=== PATIENT | female | born 1990 | race Caucasian/White ===

== ENCOUNTER 2019-06-30 14:04 | Emergency (ER) | payer BC ==
--- NOTE | 2019-06-30 14:49 | EDM.PDOC ---
ED HPI GENERAL MEDICAL PROBLEM - General Chief Complaint: Respiratory Problem Stated Complaint: NAUSEA/ THROWING UP/ COUGHING Time Seen by Provider: 06/30/19 14:49 Source of Information: Reports: Patient History Limitations: Reports: No Limitations - History of Present Illness INITIAL COMMENTS - FREE TEXT/NARRATIVE: HISTORY AND PHYSICAL: History of present illness: Patient is a 29-year-old female presents to the ED with complaint of cough and vomiting. Patient started with a cough yesterday and had an episode of nonbloody emesis yesterday and once this morning. She states she feels tired and has had chills. She reports taking tylenol and does feel better with this. She denies chest pain, shortness of breath, abdominal pain, diarrhea, sore throat, ear pain. She denies recent travel. Patient is an MA at [employer]. She denies significant past medical history. Review of systems: As per history of present illness and below otherwise all systems reviewed and negative. Past medical history: As per history of present illness and as reviewed below otherwise noncontributory. Surgical history: As per history of present illness and as reviewed below otherwise noncontributory. Social history: No reported history of drug or alcohol abuse. Family history: As per history of present illness and as reviewed below otherwise noncontributory. Physical exam: General: Patient sitting comfortably in no acute distress and nontoxic appearing HEENT: Atraumatic, normocephalic, pupils reactive, negative for conjunctival pallor or scleral icterus, mucous membranes moist, throat clear, neck supple, nontender, trachea midline. No meningeal signs. Lungs: Clear to auscultation, breath sounds equal bilaterally, chest nontender. Heart: S1S2, regular, negative for clicks, rubs, or overt murmur. Abdomen: Soft, nondistended, nontender. Negative for masses or hepatosplenomegaly. Negative for costovertebral tenderness. No rigidity, rebound , guarding. Pelvis: Stable nontender. Genitourinary: Deferred. Rectal: Deferred. Extremities: Atraumatic, negative for cords or calf pain. Neurovascular unremarkable. Neuro: Awake, alert, oriented. Cranial nerves II through XII unremarkable. Cerebellum unremarkable. Motor and sensory unremarkable throughout. Exam nonfocal. Notes: Diagnostics: Influenza Therapeutics: Zofran Prescriptions: Impression: Cough, nausea and vomiting Plan: Drink plenty of fluids and alternate tylenol and motrin as discussed You make take zofran as needed for nausea/vomiting Follow up with primary care provider Return to ED as needed as discussed Definitive disposition and diagnosis as appropriate pending reevaluation and review of above. - Related Data Allergies Allergy/AdvReac Type Severity Reaction Status Date / Time No Known Allergies Allergy Verified 06/30/19 14:43 Home Meds: Home Meds Ondansetron [Zofran ODT] 4 mg PO Q6H PRN #10 tab.dis 06/30/19 [Rx] ED ROS GENERAL - Review of Systems Review Of Systems: Comprehensive ROS is negative, except as noted in HPI. ED EXAM, GENERAL - Physical Exam Exam: See Below (see dictation) Course - Vital Signs Last Recorded V/S: Last Vital Signs Temp 99.5 F 06/30/19 14:43 Pulse 104 H 06/30/19 14:43 Resp 16 06/30/19 14:43 BP 132/84 06/30/19 14:43 Pulse Ox 97 06/30/19 14:43 - Orders/Labs/Meds Meds: Medications Discontinued Medications Generic Name Dose Route Start Last Admin Trade Name Freq PRN Reason Stop Dose Admin Ondansetron HCl 4 mg 06/30/19 14:59 06/30/19 15:04 Zofran Odt PO 06/30/19 15:00 4 mg ONETIME ONE Administration Departure - Departure Time of Disposition: 15:34 Disposition: Home, Self-Care 01 Condition: Good Clinical Impression: Cough, Nausea & vomiting - Discharge Information Prescriptions: Ondansetron [Zofran ODT] 4 mg PO Q6H PRN #10 tab.dis PRN Reason: Nausea/Vomiting Referrals: PCP,None [Primary Care Provider] - Forms: ED Department Discharge Additional Instructions: The following information is given to patients seen in the emergency department who are being discharged to home. This information is to outline your options for follow-up care. We provide all patients seen in our emergency department with a follow-up referral. The need for follow-up, as well as the timing and circumstances, are variable depending upon the specifics of your emergency department visit. If you don't have a primary care physician on staff, we will provide you with a referral. We always advise you to contact your personal physician following an emergency department visit to inform them of the circumstance of the visit and for follow-up with them and/or the need for any referrals to a consulting specialist. The emergency department will also refer you to a specialist when appropriate. This referral assures that you have the opportunity for follow-up care with a specialist. All of these measure are taken in an effort to provide you with optimal care, which includes your follow-up. Under all circumstances we always encourage you to contact your private physician who remains a resource for coordinating your care. When calling for follow-up care, please make the office aware that this follow-up is from your recent emergency room visit. If for any reason you are refused follow-up, please contact the [facility] Emergency Department at and asked to speak to the emergency department charge nurse. [facility] [address] [place] [address] [place] [address] Drink plenty of fluids and alternate tylenol and motrin as discussed You make take zofran as needed for nausea/vomiting Follow up with primary care provider Return to ED as needed as discussed Sepsis Event Note - Evaluation Sepsis Screening Result: No Definite Risk - Focused Exam Vital Signs: Vital Signs Temp Pulse Resp BP Pulse Ox 06/30/19 14:43 99.5 F 104 H 16 132/84 97 Date Exam was Performed: 06/30/19 Time Exam was Performed: 15:33
[2019-06-30] MEDS ORDERED: Ondansetron 4 MG Tab.DIS PO ONE (14:59)
== END 2019-06-30 15:48 | disposition home or self-care (01) ==
LOC: MW.ED 14:04
DX: R11.2 Nausea with vomiting, unspecified (principal); R05 Cough
CPT/HCPCS: 87804; 99284; A9270; 99282

== ENCOUNTER 2020-06-02 23:47 | Emergency (ER) | payer BC ==
--- NOTE | 2020-06-02 23:54 | EDM.PDOC ---
ED HPI GENERAL MEDICAL PROBLEM - General Stated Complaint: SHORTNESS OF BREATH, 27 WKS Time Seen by Provider: 06/02/20 23:48 Source of Information: Reports: Patient History Limitations: Reports: No Limitations - History of Present Illness INITIAL COMMENTS - FREE TEXT/NARRATIVE: 30-year-old female GA 27 weeks with history of asthma presents feeling short of breath since 1999 this evening. Patient denies fever, chills, headache, chest pain, cough, abdominal pain, vaginal bleeding, contractions, leakage of fluid, focal numbness or weakness.she has a history of asthma but has not had an exace rbation for a long time. She used a Primatene Mist inhaler prior to arrival with no relief. ROS: A 10-point review of systems, other than pertinent positives and negatives as stated per HPI, is otherwise negative Past medical history: No additional pertinent history Past Surgical history: No additional pertinent history Social history: No additional pertinent history Family history: No additional pertinent history PHYSICAL EXAM General: AOx4, GCS = 15, No distress HEENT: dry mucous membrane Neck: supple, no meningismus, no Kernig or Brudzinski Cardiac: S1S2 RRR Respiratory: Diminished breath sounds bilaterally, no wheezing. Abdomen: Soft, nontender, no rebound or guarding, nondistended, no pulsatile mass. Back: nontender Musculoskeletal: NVI distally, no deformity Neuro: No focal deficits, CN 2 - 12 WNL. - Related Data Allergies Allergy/AdvReac Type Severity Reaction Status Date / Time Penicillins Allergy Hives Verified 06/02/20 23:55 Home Meds: Home Meds Vits #93/Iron Fum/FA [ Formula Tablet] 1 tab PO DAILY 06/02/20 [History] Albuterol Sulfate [Proair Hfa] 8.5 gm IH Q6H PRN #1 hfa.aer.ad 06/03/20 [Rx] Past Medical History - Past Surgical History HEENT Surgical History: Reports: Adenoidectomy, Tonsillectomy Social & Family History - Family History Family Medical History: No Pertinent Family History ED ROS GENERAL - Review of Systems Review Of Systems: See Below (see dictation) ED EXAM, GENERAL - Physical Exam Exam: See Below (see dictation) #1 Interpretation EKG Interpretation Comments: Heart rate = 95 bpm, normal sinus rhythm, normal QRS interval, no STEMI. EKG and rhythm strip interpreted by me at 1156 Course - Vital Signs Last Recorded V/S: Last Vital Signs Temp 97.9 F 06/02/20 23:58 Pulse 95 06/02/20 23:58 Resp 18 06/02/20 23:58 BP 126/77 06/02/20 23:58 Pulse Ox 99 06/02/20 23:58 - Orders/Labs/Meds Orders: Active Orders 24 hr Category Date Time Status EKG Documentation Completion [RC] STAT Care 06/03/20 00:02 Active RT Aerosol Therapy [RC] ASDIRECTED Care 06/03/20 00:08 Active RT Aerosol Therapy [RC] ASDIRECTED Care 06/03/20 00:08 Active Meds: Medications Discontinued Medications Generic Name Dose Route Start Last Admin Trade Name Freq PRN Reason Stop Dose Admin Albuterol/Ipratropium 3 ml 06/03/20 00:07 06/03/20 00:39 Duoneb 3.0-0.5 Mg/3 Ml NEB 06/03/20 00:08 3 ml ONETIME ONE Administration Budesonide 0.5 mg 06/03/20 00:08 06/03/20 00:39 Pulmicort NEB 06/03/20 00:09 0.5 mg ONETIME ONE Administration - Re-Assessments/Exams Free Text/Narrative Re-Assessment/Exam: 06/03/20 01:12 After DuoNeb treatment with budesonide, she feels much improved, she is currently stable for discharge. I performed a repeat exam and did not appreciate new abnormal findings. Patient exhibits normal vital signs and has a normal gait on road test. FHT was performed and in approrpiate range. I advised the patient to return to the ER for reevaluation if symptoms worsened, including fever, worsening pain, or any other worrisome symptoms. I instructed the patient to follow up with their PCP within 2-3 days. MEDICAL DECISION MAKING: I reviewed the patients past medical records, lab and radiographic findings. I discussed the case with the patient. My differential diagnosis included: Asthma exacerbation. Departure - Departure Time of Disposition: 01:13 Disposition: Home, Self-Care 01 Condition: Good Clinical Impression: Exacerbation of asthma - Discharge Information *PRESCRIPTION DRUG MONITORING PROGRAM REVIEWED*: Not Applicable *COPY OF PRESCRIPTION DRUG MONITORING REPORT IN PATIENT LEON: Not Applicable Prescriptions: Albuterol Sulfate [Proair Hfa] 8.5 gm IH Q6H PRN #1 hfa.aer.ad PRN Reason: Shortness Of Breath Instructions: Asthma, Adult Referrals: PCP,None [Primary Care Provider] - Sepsis Event Note (ED) - Focused Exam Vital Signs: Vital Signs Temp Pulse Resp BP Pulse Ox 06/02/20 23:58 97.9 F 95 18 126/77 99 - My Orders Last 24 Hours: My Active Orders 06/03/20 00:02 EKG Documentation Completion [RC] STAT 06/03/20 00:08 RT Aerosol Therapy [RC] ASDIRECTED RT Aerosol Therapy [RC] ASDIRECTED - Assessment/Plan Last 24 Hours: My Active Orders 06/03/20 00:02 EKG Documentation Completion [RC] STAT 06/03/20 00:08 RT Aerosol Therapy [RC] ASDIRECTED RT Aerosol Therapy [RC] ASDIRECTED
[2020-06-03] MEDS ORDERED: Albuterol/Ipratropium 3.0-0.5 MG/3 ML Neb Soln NEB ONE (00:07)
[2020-06-03] MEDS ORDERED: Budesonide 0.5 MG/2 ML Neb Susp NEB ONE (00:08)
== END 2020-06-03 01:34 | disposition home or self-care (01) ==
LOC: MW.ED 23:47
DX: J45.901 Unspecified asthma with (acute) exacerbation (principal); Z88.0 Allergy status to penicillin
CPT/HCPCS: 93005; 93010; 99283; 99284-25; J7620-GY

== ENCOUNTER 2020-08-16 15:21 | Inpatient (IN) | payer BC ==
[2020-08-16] MEDS ORDERED: Ondansetron 4 MG/2 ML SDV IVPUSH PRN (15:37)
[2020-08-16] MEDS ORDERED: Carboprost Tromethamine 250 MCG/1 ML Amp IM PRN (15:37)
[2020-08-16] MEDS ORDERED: Nalbuphine 10 MG/1 ML Vial IVPUSH PRN (15:37)
[2020-08-16] MEDS ORDERED: Sodium Chloride 0.9% 10 ML Syringe FLUSH PRN (15:37)
[2020-08-16] MEDS ORDERED: Misoprostol 200 MCG Tab PO PRN (15:37)
[2020-08-16] MEDS ORDERED: Tranexamic Acid 1,000 MG in Sodium Chloride 0.9% 100 ML IV PRN (15:37)
[2020-08-16] MEDS ORDERED: Terbutaline 1 MG/ML SDV SUBCUT PRN (15:37)
[2020-08-16] MEDS ORDERED: Water For Irrigation,Sterile 1,000 ML Container IRR PRN (15:37)
[2020-08-16] MEDS ORDERED: Lidocaine 1% 50 ML MDV INJECT PRN (15:37)
[2020-08-16] MEDS ORDERED: Methylergonovine 0.2 MG/1 ML Amp IM PRN (15:37)
[2020-08-16] MEDS ORDERED: Misoprostol 25 MCG (1/4 of 100 MCG) Tab VAG PRN (15:37)
[2020-08-16] MEDS ORDERED: Oxytocin/0.9 % Sodium Chloride 30 UNIT/500 ML BAG IV SCH ×2 (15:45)
[2020-08-16] MEDS ORDERED: hydrOXYzine Pamoate 25 MG Cap PO PRN (15:45)
[2020-08-16] MEDS ORDERED: Misoprostol 25 MCG (1/4 of 100 MCG) Tab PO ONE (15:56)
[2020-08-16] MEDS: Misoprostol 25 MCG (1/4 of 100 MCG) Tab VAG PRN ×2 (16:19→21:00)
--- NOTE | 2020-08-16 17:08 | PCM.LDHP ---
L&D History of Present Illness - General Date of Service: 08/16/20 Admit Problem/Dx: Patient Status Order with Admit Dx/Problem 08/16/20 15:38 Patient Status [ADT] Routine Admission Diagnosis/Problem Admission Diagnosis/Problem 08/16/20 17:03 Yuliya is a 30 yo at 38+3 weeks gestation (RIVAS(LMP) 08/27/2020) that presents today for IOL re: A2GDM treated with metformin 500 mg BID. O pos, Ab screen neg, RI, GBS neg. Ax: Penicillins. TWG 21 lbs, appropriate for pre- BMI. Otherwise unremarkable course. Denies LOF, pain; reports adequate FM. Denies any other complaints or concerns at this time. RBAs/SEs of IOL with Rodgers < 8 needing cervical ripening discussed in clinic, consents signed 08/09/2020; rediscussed and reinforced today. Desires to continue with IOL today. 08/16/20 17:09 Source of Information: Patient History Limitations: Reports: No Limitations - History of Present Illness Improves with: Reports: None Worsens with: Reports: None Associated Symptoms: Reports: N - Related Data Allergies/Adverse Reactions: Allergies Allergy/AdvReac Type Severity Reaction Status Date / Time Penicillins Allergy Hives Verified 07/26/20 16:53 Home Medications: Home Meds Vits #93/Iron Fum/FA [ Formula Tablet] 1 tab PO DAILY 06/02/20 [History] metFORMIN [Glucophage XR] 500 mg PO BIDMEALS 08/16/20 [History] Past Medical History HEENT History: Reports: None Cardiovascular History: Reports: None Respiratory History: Reports: None Gastrointestinal History: Reports: None Genitourinary History: Reports: None CAT SITTER History: Reports: : 1 Para: 0 Musculoskeletal History: Reports: None Neurological History: Reports: None Psychiatric History: Reports: None Endocrine/Metabolic History: Reports: Diabetes, Gestational, Obesity/BMI 30+ Hematologic History: Reports: None Immunologic History: Reports: None Oncologic (Cancer) History: Reports: None Dermatologic History: Reports: None - Past Surgical History HEENT Surgical History: Reports: Adenoidectomy, Tonsillectomy Social & Family History - Family History Family Medical History: No Pertinent Family History - Tobacco Use Tobacco Use Status *Q: Never Tobacco User - Caffeine Use Caffeine Use: Reports: None - Alcohol Use Alcohol Use History: No - Recreational Drug Use Recreational Drug Use: No H&P Review of Systems - Review of Systems: Review Of Systems: Comprehensive ROS is negative, except as noted in HPI. General: Reports: No Symptoms HEENT: Reports: No Symptoms Pulmonary: Reports: No Symptoms Cardiovascular: Reports: No Symptoms Gastrointestinal: Reports: No Symptoms Genitourinary: Reports: No Symptoms Musculoskeletal: Reports: No Symptoms Skin: Reports: No Symptoms Psychiatric: Reports: No Symptoms Neurological: Reports: No Symptoms Hematologic/Lymphatic: Reports: No Symptoms Immunologic: Reports: No Symptoms L&D Exam - Exam Exam: See Below - Vital Signs Vital Signs: VSS, afebrile. See flowsheet. Weight: 180 lb - OB Specific Fundal Height In cm: 38 Contraction Duration (sec): 0 Contraction Frequency (min): 0 Movement: Active Heart Tones: Present Heart Tones per Min: 115 Heart Rate (FHR) Variability: Moderate (6-25 bmp) Presentation: Vertex (via Jesús's.) - Rodgers Score Rodgers Score Cervix Position: Posterior Rodgers Score Consistency: Medium Rodgers Score Effacement: 0-30% Rodgers Score Dilation: Closed Rodgers Score Infant's Station: -2 Rodgers Score Total: 2 - Exam General: Alert, Oriented, Cooperative HEENT: Conjunctiva Clear, Hearing Intact, Mucosa Moist & [place], Normal Nasal Sept um, Posterior Pharynx Clear, TMs Clear, PERRLA Neck: Supple, Trachea Midline Lungs: Clear to Auscultation, Normal Respiratory Effort Cardiovascular: Regular Rate, Regular Rhythm GI/Abdominal Exam: Normal Bowel Sounds, Soft, Non-Tender, No Organomegaly, No Distention Rectal Exam: Deferred Genitourinary: Normal external exam, Normal bimanual exam, Enlarged uterus (Gravid uterus) Back Exam: Normal Inspection, Full Range of Motion Extremities: Normal Inspection, Normal Range of Motion, Non-Tender, No Pedal Edema, Normal Capillary Refill Skin: Warm, Dry, Intact Neurological: Cranial Nerves Intact, Reflexes Equal Bilateral Psychiatric: Alert, Normal Affect, Normal Mood - Patient Data Lab Results Last 24 hrs: Laboratory Results - last 24 hr 08/16/20 Range/Units 16:20 WBC 11.45 H (4.0-11.0) K/uL RBC 3.75 L (4.30-5.90) M/uL Hgb 12.2 (12.0-16.0) g/dL Hct 36.9 (36.0-46.0) % MCV 98.4 H (80.0-98.0) fL MCH 32.5 H (27.0-32.0) pg MCHC 33.1 (31.0-37.0) g/dL RDW Std Deviation 52.9 (28.0-62.0) fl RDW Coeff of Jacqui 15 (11.0-15.0) % Plt Count 215 (150-400) K/uL MPV 13.70 H (7.40-12.00) fL Nucleated RBC % 0.0 /100WBC Nucleated RBCs # 0 K/uL Result Diagrams: 08/16/20 16:20 - Problem List (1) Encounter for induction of labor SNOMED Code(s): 060160152 ICD Code: Z34.90 - ENCNTR FOR SUPRVSN OF NORMAL , UNSP, UNSP TRIMESTER Status: Acute Priority: High Current Visit: Yes (2) GDM, class A2 SNOMED Code(s): 59227357 ICD Code: O24.419 - GESTATIONAL DIABETES MELLITUS IN , UNSP CONTROL Status: Acute Priority: High Current Visit: Yes (3) 38 weeks gestation of SNOMED Code(s): 48895134 ICD Code: Z3A.38 - 38 WEEKS GESTATION OF Status: Acute Priority: High Current Visit: Yes Problem List Initiated/Reviewed/Updated: No Orders Last 24hrs: Active Orders 24 hr Category Date Time Status Patient Status [ADT] Routine ADT 08/16/20 15:38 Active Bedrest Bathroom Privileges [RC] ASDIRECTED Care 08/16/20 15:38 Active Communication Order [RC] ASDIRECTED Care 08/16/20 15:38 Active Communication Order [RC] ASDIRECTED Care 08/16/20 15:38 Active Communication Order [RC] ASDIRECTED Care 08/16/20 15:38 Active Heart Tones [RC] CONTINUOUS Care 08/16/20 15:38 Active Non Stress Test [RC] PER UNIT ROUTINE Care 08/16/20 15:38 Active May Shower [RC] ASDIRECTED Care 08/16/20 15:38 Active Notify Provider [RC] PRN Care 08/16/20 15:38 Active Notify Provider [RC] PRN Care 08/16/20 15:38 Active Notify Provider [RC] STAT Care 08/16/20 15:38 Active Oxygen Therapy [RC] ASDIRECTED Care 08/16/20 15:38 Active Up ad Domitila [RC] ASDIRECTED Care 08/16/20 15:38 Active Vaginal Exam [RC] PRN Care 08/16/20 15:38 Active Vaginal Exam [RC] PRN Care 08/16/20 15:38 Active Vital Signs [RC] PER UNIT ROUTINE Care 08/16/20 15:38 Active RPR (SYPHILIS SERO) W/ RFLX [REF] Routine Lab 08/16/20 16:53 Received TYPE AND SCREEN [BBK] Routine Lab 08/16/20 16:53 Received Carboprost Tromethamine [Hemabate DS] Med 08/16/20 15:37 Active 250 mcg IM ASDIRECTED PRN Lactated Ringers [Ringers, Lactated] 1,000 ml Med 08/16/20 15:45 Active IV ASDIRECTED Lidocaine 1% [Xylocaine 1%] Med 08/16/20 15:37 Active 50 ml INJECT ONETIME PRN Methylergonovine [Methergine] Med 08/16/20 15:37 Active 0.2 mg IM ASDIRECTED PRN Nalbuphine [Nubain] Med 08/16/20 15:37 Active 10 mg IVPUSH Q1H PRN Ondansetron [Zofran] Med 08/16/20 15:37 Active 4 mg IVPUSH Q4H PRN Oxytocin/0.9 % Sodium Chloride [Oxytocin 30 Unit/500 ML Med 08/16/20 15:45 Active -NS] 30 unit in 500 ml IV TITRATE Oxytocin/0.9 % Sodium Chloride [Oxytocin 30 Unit/500 ML Med 08/16/20 15:45 Active -NS] 30 unit in 500 ml IV TITRATE Sodium Chloride 0.9% [Saline Flush] Med 08/16/20 15:37 Active 10 ml FLUSH ASDIRECTED PRN Terbutaline [Brethine] Med 08/16/20 15:37 Active 0.25 mg SUBCUT ASDIRECTED PRN Tranexamic Acid [Cyklokapron] 1,000 mg Med 08/16/20 15:37 Active Sodium Chloride 0.9% [Normal Saline] 100 ml IV ONETIME Water For Irrigation,Sterile [Sterile Water for Med 08/16/20 15:37 Active Irrigation] 1,000 ml IRR ASDIRECTED PRN hydrOXYzine pamoate [Vistaril] Med 08/16/20 15:45 Active 50 mg PO BEDTIME PRN miSOPROStoL [Cytotec] Med 08/16/20 15:37 Active 200 mcg PO ONETIME PRN miSOPROStoL [Cytotec] Med 08/16/20 20:19 Active 25 mcg PO Q4H PRN miSOPROStoL [Cytotec] Med 08/16/20 15:37 Active 25 mcg VAG ONETIME PRN Scalp Electrode [WOMSER] Per Unit Routine Oth 08/16/20 15:38 Ordered Medication Administration Instruction [OM.PC] Q3H Oth 08/16/20 15:45 Ordered Peripheral IV Insertion Adult [OM.PC] Routine Oth 08/16/20 15:38 Ordered Resuscitation Status Routine Resus Stat 08/16/20 15:37 Ordered Medication Orders Carboprost Tromethamine (Carboprost Tromethamine 250 Mcg/1 Ml Amp) 250 mcg IM ASDIRECTED PRN PRN Reason: Post Hemorrhage Hydroxyzine Pamoate (Hydroxyzine Pamoate 25 Mg Cap) 50 mg PO BEDTIME PRN PRN Reason: Sleep Oxytocin/Sodium Chloride (Oxytocin 30 Unit/500 Ml-Ns) 30 unit in 500 mls @ 999 mls/hr IV TITRATE ROMAN Tranexamic Acid 1,000 mg/ (Sodium Chloride) 110 mls @ 660 mls/hr IV ONETIME PRN PRN Reason: Bleeding Oxytocin/Sodium Chloride (Oxytocin 30 Unit/500 Ml-Ns) 30 unit in 500 mls @ 2 mls/hr IV TITRATE ROMAN; Protocol Lactated Ringer's (Ringers, Lactated) 1,000 mls @ 150 mls/hr IV ASDIRECTED ROMAN Lidocaine HCl (Lidocaine 1% 50 Ml Mdv) 50 ml INJECT ONETIME PRN PRN Reason: Laceration repair Methylergonovine Maleate (Methylergonovine 0.2 Mg/1 Ml Amp) 0.2 mg IM ASDIRECTED PRN PRN Reason: Post Hemorrhage Misoprostol (Misoprostol 200 Mcg Tab) 200 mcg PO ONETIME PRN PRN Reason: Post Hemorrhage Misoprostol (Misoprostol 25 Mcg (1/4 Of 100 Mcg) Tab) 25 mcg VAG ONETIME PRN PRN Reason: Cervical Ripening Last Admin: 08/16/20 16:19 Dose: 25 mcg Documented by: DEVONTE Misoprostol (Misoprostol 25 Mcg (1/4 Of 100 Mcg) Tab) 25 mcg PO Q4H PRN PRN Reason: Cervical Ripening Nalbuphine HCl (Nalbuphine 10 Mg/1 Ml Vial) 10 mg IVPUSH Q1H PRN PRN Reason: Pain (severe 7-10) Ondansetron HCl (Ondansetron 4 Mg/2 Ml Sdv) 4 mg IVPUSH Q4H PRN PRN Reason: Nausea/Vomiting Sodium Chloride (Sodium Chloride 0.9% 10 Ml Syringe) 10 ml FLUSH ASDIRECTED PRN PRN Reason: Keep Vein Open Sterile Water (Water For Irrigation,Sterile 1,000 Ml Container) 1,000 ml IRR ASDIRECTED PRN PRN Reason: delivery Terbutaline Sulfate (Terbutaline 1 Mg/Ml Sdv) 0.25 mg SUBCUT ASDIRECTED PRN PRN Reason: Tacysystole Assessment/Plan Comment:: Admit to inpatient observation for IOL re: A2GDM. RODGERS 2: Cytotec Dose #1 administered 4:20 pm, plan to reassess cervical change at 8:30 pm or sooner if indicated. Carb consistent diet. FSBSs q 4 hours intrapartum. VS and EFM/TOCO per orders. May receive epidural >/=[address] new orders[address] Dr. Broussard notified and agreeable with POC.
[2020-08-16] MEDS ORDERED: Misoprostol 25 MCG (1/4 of 100 MCG) Tab PO PRN (20:19)
[2020-08-16] MEDS ORDERED: Misoprostol 50 MCG (1/2 of 100 MCG) Tab VAG PRN (20:25)
[2020-08-17] MEDS: Lactated Ringers 1,000 ML IV SCH ×3 (00:30→03:06)
[2020-08-17] MEDS ORDERED: Ropivacaine HCl/PF 100 ML ONE (01:56)
[2020-08-17] MEDS ORDERED: fentaNYL 100 MCG/2 ML SDV ONE (01:56)
--- NOTE | 2020-08-17 02:20 | PCM.PREANE ---
Preanesthetic Assessment - Anesthesia/Transfusion/Family Hx Anesthesia History: No Prior Anesthesia Family History of Anesthesia Reaction: No Transfusion History: No Prior Transfusion(s) - Physical Assessment NPO Status Date: 08/16/20 NPO Status Time: 20:00 Height: 1.57 m Weight: 81.647 kg ASA Class: 2 - Lab Values: Laboratory Last Values WBC 11.45 K/uL (4.0-11.0) H 08/16/20 16:20 RBC 3.75 M/uL (4.30-5.90) L 08/16/20 16:20 Hgb 12.2 g/dL (12.0-16.0) 08/16/20 16:20 Hct 36.9 % (36.0-46.0) 08/16/20 16:20 MCV 98.4 fL (80.0-98.0) H 08/16/20 16:20 MCH 32.5 pg (27.0-32.0) H 08/16/20 16:20 MCHC 33.1 g/dL (31.0-37.0) 08/16/20 16:20 RDW Std Deviation 52.9 fl (28.0-62.0) 08/16/20 16:20 RDW Coeff of Jacqui 15 % (11.0-15.0) 08/16/20 16:20 Plt Count 215 K/uL (150-400) 08/16/20 16:20 MPV 13.70 fL (7.40-12.00) H 08/16/20 16:20 Nucleated RBC % 0.0 /100WBC 08/16/20 16:20 Nucleated RBCs # 0 K/uL 08/16/20 16:20 Membrane Rupture POSITIVE 08/17/20 00:40 Blood Type O POSITIVE 08/16/20 16:53 Antibody Screen NEGATIVE 08/16/20 16:53 - Allergies Allergies/Adverse Reactions: Allergies Allergy/AdvReac Type Severity Reaction Status Date / Time Penicillins Allergy Hives Verified 07/26/20 16:53 - Acknowledgements Anesthesia Type Planned: Epidural Pt an Appropriate Candidate for the Planned Anesthesia: Yes Alternatives and Risks of Anesthesia Discussed w Pt/Guardian: Yes Pt/Guardian Understands and Agrees with Anesthesia Plan: Yes PreAnesthesia Questionnaire HEENT History: Reports: None Cardiovascular History: Reports: None Respiratory History: Reports: None Gastrointestinal History: Reports: None Genitourinary History: Reports: None ACCORDION TUNER History: Reports: Musculoskeletal History: Reports: None Neurological History: Reports: None Psychiatric History: Reports: None Endocrine/Metabolic History: Reports: Diabetes, Gestational, Obesity/BMI 30+ Hematologic History: Reports: None Immunologic History: Reports: None Oncologic (Cancer) History: Reports: None Dermatologic History: Reports: None - Infectious Disease History Infectious Disease History: Reports: Chicken Pox, SARS - Past Surgical History HEENT Surgical History: Reports: Adenoidectomy, Tonsillectomy - SUBSTANCE USE Tobacco Use Status *Q: Never Tobacco User Second Hand Smoke Exposure: No Recreational Drug Use History: No - HOME MEDS Home Medications: Home Meds Vits #93/Iron Fum/FA [ Formula Tablet] 1 tab PO DAILY 06/02/20 [History] metFORMIN [Glucophage XR] 500 mg PO BIDMEALS 08/16/20 [History] - CURRENT (IN HOUSE) MEDS Current Meds: Current Medications Carboprost Tromethamine (Carboprost Tromethamine 250 Mcg/1 Ml Amp) 250 mcg IM ASDIRECTED PRN PRN Reason: Post Hemorrhage Hydroxyzine Pamoate (Hydroxyzine Pamoate 25 Mg Cap) 50 mg PO BEDTIME PRN PRN Reason: Sleep Last Admin: 08/16/20 23:51 Dose: 50 mg Documented by: Oxytocin/Sodium Chloride (Oxytocin 30 Unit/500 Ml-Ns) 30 unit in 500 mls @ 999 mls/hr IV TITRATE ROMAN Tranexamic Acid 1,000 mg/ (Sodium Chloride) 110 mls @ 660 mls/hr IV ONETIME PRN PRN Reason: Bleeding Oxytocin/Sodium Chloride (Oxytocin 30 Unit/500 Ml-Ns) 30 unit in 500 mls @ 2 mls/hr IV TITRATE ROMAN; Protocol Lactated Ringer's (Ringers, Lactated) 1,000 mls @ 150 mls/hr IV ASDIRECTED ROMAN Last Admin: 08/17/20 00:30 Dose: 150 mls/hr Documented by: Lidocaine HCl (Lidocaine 1% 50 Ml Mdv) 50 ml INJECT ONETIME PRN PRN Reason: Laceration repair Methylergonovine Maleate (Methylergonovine 0.2 Mg/1 Ml Amp) 0.2 mg IM ASDIRECTED PRN PRN Reason: Post Hemorrhage Misoprostol (Misoprostol 200 Mcg Tab) 200 mcg PO ONETIME PRN PRN Reason: Post Hemorrhage Misoprostol (Misoprostol 25 Mcg (1/4 Of 100 Mcg) Tab) 25 mcg VAG ONETIME PRN PRN Reason: Cervical Ripening Last Admin: 08/16/20 21:00 Dose: 25 mcg Documented by: Misoprostol (Misoprostol 25 Mcg (1/4 Of 100 Mcg) Tab) 25 mcg PO Q4H PRN PRN Reason: Cervical Ripening Last Admin: 08/16/20 21:01 Dose: 25 mcg Documented by: Misoprostol (Misoprostol 50 Mcg (1/2 Of 100 Mcg) Tab) 25 mcg VAG Q4H PRN PRN Reason: cervical ripening Nalbuphine HCl (Nalbuphine 10 Mg/1 Ml Vial) 10 mg IVPUSH Q1H PRN PRN Reason: Pain (severe 7-10) Ondansetron HCl (Ondansetron 4 Mg/2 Ml Sdv) 4 mg IVPUSH Q4H PRN PRN Reason: Nausea/Vomiting Sodium Chloride (Sodium Chloride 0.9% 10 Ml Syringe) 10 ml FLUSH ASDIRECTED PRN PRN Reason: Keep Vein Open Sterile Water (Water For Irrigation,Sterile 1,000 Ml Container) 1,000 ml IRR ASDIRECTED PRN PRN Reason: delivery Terbutaline Sulfate (Terbutaline 1 Mg/Ml Sdv) 0.25 mg SUBCUT ASDIRECTED PRN PRN Reason: Tacysystole Discontinued Medications Fentanyl (Fentanyl 100 Mcg/2 Ml Sdv) Confirm Administered Dose 100 mcg .ROUTE .STK-MED ONE Stop: 08/17/20 01:57 Ropivacaine (Naropin 0.2%) Confirm Administered Dose 100 mls @ as directed .ROUTE .STK-MED ONE Stop: 08/17/20 01:57 Misoprostol (Misoprostol 25 Mcg (1/4 Of 100 Mcg) Tab) 25 mcg VAG Q4H PRN PRN Reason: Cervical Ripening Misoprostol (Misoprostol 25 Mcg (1/4 Of 100 Mcg) Tab) 25 mcg PO ONETIME ONE Stop: 08/16/20 15:57 Last Admin: 08/16/20 16:18 Dose: 25 mcg Documented by:
--- NOTE | 2020-08-17 02:23 | PCM.PRNOTE ---
- Free Text/Narrative Note: Anes Note Patient requests epidural for L&D. Sitting position. Level L3-L4 midline approach. Sterile technique. Chloraprep scrub to lumbar areas. Sterile fenestrated drape applied. Epidural space easily achieved single attempt with ease using RENO technique. RENO at 3 cm. Cath threaded 5 cm with ease. Cath secured a t skin using sterile clear adhesive dressing. 0208 Test 3 cc 1.5% lido with epi negative. 0211 Load 10 cc 0.2% ropivicaine with 1 mcg cc fentanyl in slow divided doses. 0215 Pump started with 90 cc same solution. Rate is 8 cc hr with 6 cc q 20 min prn bolus. Enzo well. Time with patient [id number] Kunal Valdes ANALYTICS DIRECTOR
[2020-08-17] MEDS ORDERED: Acetaminophen 500 MG Tab PO PRN (08:25)
[2020-08-17] MEDS ORDERED: Benzocaine/Menthol 20%-0.5% Spray 78 GM Cannister TOP PRN (08:25)
[2020-08-17] MEDS ORDERED: Bisacodyl 10 MG Supp RECTAL PRN (08:25)
[2020-08-17] MEDS ORDERED: Ibuprofen 400 MG Tab PO PRN (08:25)
[2020-08-17] MEDS ORDERED: oxyCODONE 5 MG Tab PO PRN (08:25)
[2020-08-17] MEDS ORDERED: Lanolin 100% Cream 7 GM Tube TOP PRN (08:25)
[2020-08-17] MEDS ORDERED: Witch Hazel Medicated Pads 40/Jar TOP PRN (08:25)
[2020-08-17] MEDS: Ibuprofen 800 MG Tab PO PRN ×3 (10:55→23:32)
[2020-08-17] MEDS: Docusate Sodium 100 MG Cap PO PRN ×2 (10:55→23:31)
[2020-08-17] MEDS: Acetaminophen 500 MG Tab PO PRN (20:43)
--- NOTE | 2020-08-18 05:00 | PCM.DCSUM1 ---
Discharge Summary - Hospital Course Free Text/Narrative:: Yuliya is a 30 yo current S/P OVD of viable, term NBM at 38+3 weeks gestation (RIVAS(LMP) 08/27/2020) performed by Dr. Broussard following IOL re: A2GDM treated with metformin 500 mg BID. O pos, Ab screen neg, RI, GBS neg. Ambulating, hydrating, eating, and voiding independently and without issue. Bottle feeding infant without problems. Moderate to severe uterine cramping and vaginal discomfort alleviated with ibuprofen and acetaminophen. Small to moderate vaginal bleeding, no clots. Patient has no questions or concerns at this time. Desires to be discharge home today. Hgb 8.6, asymptomatic. Diagnosis: Stroke: No - Discharge Data Discharge Date: 08/18/20 Discharge Disposition: Home, Self-Care 01 Condition: Good - Referral to Home Health Primary Care Physician: Lopez Broussard MD - Discharge Diagnosis/Problem(s) (1) Encounter for induction of labor SNOMED Code(s): 771860646 ICD Code: Z34.90 - ENCNTR FOR SUPRVSN OF NORMAL , UNSP, UNSP TRIMESTER Status: Acute Priority: High (2) GDM, class A2 SNOMED Code(s): 83306679 ICD Code: O24.419 - GESTATIONAL DIABETES MELLITUS IN , UNSP CONTROL Status: Acute Priority: High (3) 38 weeks gestation of SNOMED Code(s): 55907780 ICD Code: Z3A.38 - 38 WEEKS GESTATION OF Status: Acute Priority: High - Patient Instructions Diet: Regular Diet as Tolerated, Drink 8-10+ Glasses/Day Activity: As Tolerated, No Strenuous Activities, Rest and Relax Today Driving: May Drive Today Showering/Bathing: May Shower Showering/Bathing, Other: May use sitz baths for perineal comfort Notify Provider of: Fever, Increased Pain, Swelling and Redness, Drainage, Nausea and/or Vomiting - Discharge Plan *PRESCRIPTION DRUG MONITORING PROGRAM REVIEWED*: No *COPY OF PRESCRIPTION DRUG MONITORING REPORT IN PATIENT LEON: No Prescriptions/Med Rec: Ibuprofen [Motrin] 800 mg PO Q8H PRN #90 tablet PRN Reason: Pain Home Medications: Home Meds Vits #93/Iron Fum/FA [ Formula Tablet] 1 tab PO DAILY 06/02/20 [History] Ibuprofen [Motrin] 800 mg PO Q8H PRN #90 tablet 08/18/20 [Rx] Oxygen Therapy Mode: Room Air Patient Handouts: Preventing Iron Deficiency Anemia, Adult, Care After Vaginal Delivery - Discharge Summary/Plan Comment DC Time >30 min.: Yes Discharge Summary/Plan Comment: Warning S/Ss, when to call for help discussed. RTO in 6 weeks for PPV, or sooner if problems arise. - General Info Date of Service: 08/18/20 Admission Dx/Problem (Free Text: Patient Status Order with Admit Dx/Problem 08/16/20 15:38 Patient Status [ADT] Routine Admission Diagnosis/Problem Admission Diagnosis/Problem 08/16/20 17:03 Yuliya is a 30 yo at 38+3 weeks gestation (RIVAS(LMP) 08/27/2020) that presents today for IOL re: A2GDM treated with metformin 500 mg BID. O pos, Ab screen neg, RI, GBS neg. Ax: Penicillins. TWG 21 lbs, appropriate for pre- BMI. Otherwise unremarkable course. Denies LOF, pain; reports adequate FM. Denies any other complaints or concerns at this time. RBAs/SEs of IOL with Aldrich < 8 needing cervical ripening discussed in clinic, consents signed 08/09/2020; rediscussed and reinforced today. Desires to continue with IOL today. 08/16/20 17:09 Functional Status: Reports: Pain Controlled, Tolerating Diet, Ambulating, Urinating - Review of Systems General: Reports: No Symptoms HEENT: Reports: No Symptoms Pulmonary: Reports: No Symptoms Cardiovascular: Reports: No Symptoms Gastrointestinal: Reports: No Symptoms Genitourinary: Reports: No Symptoms Musculoskeletal: Reports: No Symptoms Skin: Reports: No Symptoms Neurological: Reports: No Symptoms Psychiatric: Reports: No Symptoms - Patient Data Vitals - Most Recent: Last Vital Signs Temp 98.1 F 08/17/20 20:00 Pulse 113 H 08/17/20 20:00 Resp 16 08/17/20 20:00 BP 134/82 08/17/20 20:00 Pulse Ox 98 08/17/20 20:00 Weight - Most Recent: 180 lb Med Orders - Current: Current Medications Acetaminophen (Acetaminophen 500 Mg Tab) 500 mg PO Q4H PRN PRN Reason: Pain Acetaminophen (Acetaminophen 500 Mg Tab) 1,000 mg PO Q4H PRN PRN Reason: Pain Last Admin: 08/17/20 20:43 Dose: 1,000 mg Documented by: Benzocaine/Menthol (Benzocaine/Menthol 20%-0.5% [place] 78 Gm Cannister) 78 gm TOP ASDIRECTED PRN PRN Reason: Perineal Comfort Measure Last Admin: 08/17/20 10:50 Dose: 1 can Documented by: Bisacodyl (Bisacodyl 10 Mg Supp) 10 mg RECTAL ONETIME PRN PRN Reason: Constipation Docusate Sodium (Docusate Sodium 100 Mg Cap) 100 mg PO BID PRN PRN Reason: Constipation Last Admin: 08/17/20 23:31 Dose: 100 mg Documented by: Emollient Ointment (Lanolin 100% Cream 7 Gm Tube) 0 gm TOP ASDIRECTED PRN PRN Reason: Sore Nipples Last Admin: 08/17/20 10:50 Dose: 1 tube Documented by: Ibuprofen (Ibuprofen 400 Mg Tab) 400 mg PO Q4H PRN PRN Reason: Pain Ibuprofen (Ibuprofen 800 Mg Tab) 800 mg PO Q6H PRN PRN Reason: Pain Last Admin: 08/17/20 23:32 Dose: 800 mg Documented by: Oxycodone HCl (Oxycodone 5 Mg Tab) 5 mg PO Q2H PRN PRN Reason: Pain Witch Michelle (Witch Michelle Medicated Pads 40/Jar) 1 pad TOP ASDIRECTED PRN PRN Reason: comfort care Last Admin: 08/17/20 10:49 Dose: 1 tub Documented by: Discontinued Medications Carboprost Tromethamine (Carboprost Tromethamine 250 Mcg/1 Ml Amp) 250 mcg IM ASDIRECTED PRN PRN Reason: Post Hemorrhage Fentanyl (Fentanyl 100 Mcg/2 Ml Sdv) Confirm Administered Dose 100 mcg .ROUTE .STK-MED ONE Stop: 08/17/20 01:57 Last Admin: 08/17/20 12:03 Dose: Not Given Documented by: Hydroxyzine Pamoate (Hydroxyzine Pamoate 25 Mg Cap) 50 mg PO BEDTIME PRN PRN Reason: Sleep Last Admin: 08/16/20 23:51 Dose: 50 mg Documented by: Oxytocin/Sodium Chloride (Oxytocin 30 Unit/500 Ml-Ns) 30 unit in 500 mls @ 999 mls/hr IV TITRATE ROMAN Last Infusion: 08/17/20 08:11 Dose: 500 mls/hr Documented by: Tranexamic Acid 1,000 mg/ (Sodium Chloride) 110 mls @ 660 mls/hr IV ONETIME PRN PRN Reason: Bleeding Oxytocin/Sodium Chloride (Oxytocin 30 Unit/500 Ml-Ns) 30 unit in 500 mls @ 2 mls/hr IV TITRATE ROMAN; Protocol Last Titration: 08/17/20 07:06 Dose: 0 munits/min, 0 mls/hr Documented by: Lactated Ringer's (Ringers, Lactated) 1,000 mls @ 150 mls/hr IV ASDIRECTED ROMAN Last Admin: 08/17/20 03:06 Dose: 150 mls/hr Documented by: Ropivacaine (Naropin 0.2%) Confirm Administered Dose 100 mls @ as directed .ROUTE .STK-MED ONE Stop: 08/17/20 01:57 Last Admin: 08/17/20 12:04 Dose: Not Given Documented by: Lidocaine HCl (Lidocaine 1% 50 Ml Mdv) 50 ml INJECT ONETIME PRN PRN Reason: Laceration repair Methylergonovine Maleate (Methylergonovine 0.2 Mg/1 Ml Amp) 0.2 mg IM ASD IRECTED PRN PRN Reason: Post Hemorrhage Last Admin: 08/17/20 08:11 Dose: 0.2 mg Documented by: Misoprostol (Misoprostol 200 Mcg Tab) 200 mcg PO ONETIME PRN PRN Reason: Post Hemorrhage Misoprostol (Misoprostol 25 Mcg (1/4 Of 100 Mcg) Tab) 25 mcg VAG ONETIME PRN PRN Reason: Cervical Ripening Last Admin: 08/16/20 21:00 Dose: 25 mcg Documented by: Misoprostol (Misoprostol 25 Mcg (1/4 Of 100 Mcg) Tab) 25 mcg VAG Q4H PRN PRN Reason: Cervical Ripening Misoprostol (Misoprostol 25 Mcg (1/4 Of 100 Mcg) Tab) 25 mcg PO ONETIME ONE Stop: 08/16/20 15:57 Last Admin: 08/16/20 16:18 Dose: 25 mcg Documented by: Misoprostol (Misoprostol 25 Mcg (1/4 Of 100 Mcg) Tab) 25 mcg PO Q4H PRN PRN Reason: Cervical Ripening Last Admin: 08/16/20 21:01 Dose: 25 mcg Documented by: Misoprostol (Misoprostol 50 Mcg (1/2 Of 100 Mcg) Tab) 25 mcg VAG Q4H PRN PRN Reason: cervical ripening Nalbuphine HCl (Nalbuphine 10 Mg/1 Ml Vial) 10 mg IVPUSH Q1H PRN PRN Reason: Pain (severe 7-10) Ondansetron HCl (Ondansetron 4 Mg/2 Ml Sdv) 4 mg IVPUSH Q4H PRN PRN Reason: Nausea/Vomiting Sodium Chloride (Sodium Chloride 0.9% 10 Ml Syringe) 10 ml FLUSH ASDIRECTED PRN PRN Reason: Keep Vein Open Sterile Water (Water For Irrigation,Sterile 1,000 Ml Container) 1,000 ml IRR ASDIRECTED PRN PRN Reason: delivery Terbutaline Sulfate (Terbutaline 1 Mg/Ml Sdv) 0.25 mg SUBCUT ASDIRECTED PRN PRN Reason: Tacysystole - Exam General: Reports: Alert, Oriented, Cooperative, No Acute Distress HEENT: Reports: Pupils Equal, Mucous Membr. Moist/[place] Neck: Reports: Supple Lungs: Reports: Clear to Auscultation, Normal Respiratory Effort Cardiovascular: Reports: Regular Rate, Regular Rhythm GI/Abdominal Exam: Normal Bowel Sounds, Soft, Non-Tender, No Organomegaly, No Distention (Female) Exam: Normal External Exam, Enlarged Uterus ( uterus, firm @U), Vaginal Bleeding (Small to moderate rubra lochia, no clots), Vaginal Tears (Vaginal laceration repaired, approximated, hemostatic.) Rectal (Female) Exam: Normal Rectal Tone, Deferred Back Exam: Reports: Normal Inspection, Full Range of Motion Extremities: Normal Inspection, Normal Range of Motion, Non-Tender, No Pedal Edema, Normal Capillary Refill Skin: Reports: Warm, Dry, Intact Wound/Incisions: Reports: No Drainage Neurological: Reports: No New Focal Deficit Psy/Mental Status: Reports: Alert, Normal Affect, Normal Mood
--- NOTE | 2020-08-18 07:13 | PCM48HPAN ---
Post Anesthesia Note - EVALUATION WITHIN 48HRS OF ANESTHETIC Vital Signs in Normal Range: Yes Patient Participated in Evaluation: Yes Respiratory Function Stable: Yes Airway Patent: Yes Cardiovascular Function Stable: Yes Hydration Status Stable: Yes Pain Control Satisfactory: Yes Nausea and Vomiting Control Satisfactory: Yes Mental Status Recovered: Yes Vital Signs: Last Vital Signs Temp 36.5 C 08/18/20 04:00 Pulse 90 08/18/20 04:00 Resp 16 08/18/20 04:00 BP 115/59 L 08/18/20 04:00 Pulse Ox 97 08/18/20 04:00
[2020-08-18] MEDS: Acetaminophen 500 MG Tab PO PRN (08:57)
--- NOTE | 2020-08-19 14:04 | OR ---
SURGEON: Lopez Broussard MD DATE OF PROCEDURE: 08/17/2020 Ms. Greene is 30-year-old patient. She is primigravida. She is followed in our practice primarily by our nurse intravenous therapy nurse for service. I have seen her and did do her care a few times, and she had no complication. Her GBS status was negative and her diabetes screen was normal. The patient is admitted for elective induction. She is induced with Cytotec and Pitocin according to the protocol, and she responded to that. The patient had epidural anesthesia for labor analgesia. The heart rate through the entire process of labor was category I until the end. When she was pushing, she started having some variable deceleration with her pushing. The patient became complete-complete around 4:50 a.m. and she pushed in excess of 2 hour. Because of maternal exhaustion and maybe because of epidural, she was unable to accomplish a spontaneous vaginal delivery. I was consulted. At the time of my arrival, heart rate was category I. There was some variable deceleration with pushing, and vaginal examination showed that the fetus was vertex, was in an OA position and it was +1 to +2 when she pushed. Estimated weight was felt to be between 6.5 and 7.1, and I feel the patient is a candidate for vacuum extraction. I explained that procedure to the parent and obtained consent. Once they consented, then with the appropriate people, port crane operator was called, and kiwi vacuum extraction was applied. With the patient pushing, with the aid of the vacuum pulling, with 2 to 3 pull the fetus was delivered, and a nuchal cord was noted. The fetus cried immediately. score later on reported to be 8 and 9. The placenta delivered spontaneous, complete, and intact. There was no labial, vaginal, or perineal laceration throughout the delivery. Estimated blood loss is 400 to 450 mL. There was no complication in the labor and the process. CARLOS / NISLON /[id number]
== END 2020-08-18 13:25 | disposition home or self-care (01) | DRG 560 ==
LOC: MW.OBCHECK 15:21 → MW.OB 15:38 → OBSVTOIN 08-17 08:25 → MW.OB 08-17 12:01
PROVIDERS: ADMIT Obstetrics & Gynecology; ATTEND Obstetrics & Gynecology
PROC: 10D07Z6 Extraction of Products of Conception, Vacuum, Via Natural or Artificial Opening (ICD-10-PCS; principal; 2020-08-17)
PROC: 3E0P7VZ Introduction of Hormone into Female Reproductive, Via Natural or Artificial Opening (ICD-10-PCS; 2020-08-17)
PROC: 10907ZC Drainage of Amniotic Fluid, Therapeutic from Products of Conception, Via Natural or Artificial Opening (ICD-10-PCS; 2020-08-17)
PROC: 3E033VJ Introduction of Other Hormone into Peripheral Vein, Percutaneous Approach (ICD-10-PCS; 2020-08-17)
PROC: 3E0R3BZ Introduction of Anesthetic Agent into Spinal Canal, Percutaneous Approach (ICD-10-PCS; 2020-08-17)
PROC: 4A1HXCZ Monitoring of Products of Conception, Cardiac Rate, External Approach (ICD-10-PCS; 2020-08-17)
DX: O24.425 Gestational diabetes mellitus in childbirth, controlled by oral hypoglycemic drugs (principal); Z3A.38 38 weeks gestation of pregnancy; Z37.0 Single live birth; O99.214 Obesity complicating childbirth; E66.9 Obesity, unspecified; O76 Abnormality in fetal heart rate and rhythm complicating labor and delivery; O69.81X0 Labor and delivery complicated by cord around neck, without compression, not applicable or unspecified
CPT/HCPCS: 36415; 51702; 59025; 59409; 82947; 84112; 85014; 85018; 85027; 86592; 86850; 86900; 86901; A9270-GY; J2210; J2590; J2795; J3010; J7120